=== PATIENT | male | born 1960 | race Native Hawaiian/Other Pacific Islander ===

== ENCOUNTER 2019-11-03 23:03 | Emergency (ER) | payer OTHER ==
[~2019-11-03] VITALS: Ht 195.6 cm; Wt 111.1 kg
[2019-11-03 23:50] LABS: PLATELET COUNT 354 K/uL (142-355)
[2019-11-04 01:14] VITALS: BP 134/85; TEMP 98.6
[2019-11-04] MEDS ORDERED: ASPIR-LOW81 MG PO (06:24)
[2019-11-04] MEDS ORDERED: LIPITOR40 MG PO (06:26)
[2019-11-04] MEDS ORDERED: BRILINTA90 MG PO (06:28)
[2019-11-04] MEDS ORDERED: BUSPIRONE5 MG PO (06:29)
[2019-11-04] MEDS ORDERED: DOCU100C10 PO (06:30)
[2019-11-04] MEDS ORDERED: ACID CONTROL20 MG PO (06:31)
[2019-11-04] MEDS ORDERED: LEVEMIR FL100 UNIT/M SC (06:33)
[2019-11-04] MEDS ORDERED: ROWEEPRA500 MG PO (06:34)
[2019-11-04] MEDS ORDERED: LOSA50TA PO (06:36)
[2019-11-04] MEDS ORDERED: LYRICA100 MG PO (06:37)
[2019-11-04] MEDS ORDERED: MELATONIN5 M2 PO (06:40)
[2019-11-04] MEDS ORDERED: METO-837 PO (06:41)
[2019-11-04] MEDS ORDERED: MIRALAX3350 N1 PO (06:43)
[2019-11-04] MEDS ORDERED: MIRTAZAPINE7.5 MG PO (06:47)
[2019-11-04] MEDS ORDERED: OZEMPIC2 MG/1.5 M SC (06:51)
[2019-11-04] MEDS ORDERED: SENNA PLUS 50-81 CAP PO (06:52)
[2019-11-04] MEDS ORDERED: SERT100T PO (06:55)
[2019-11-04] MEDS ORDERED: THERA PO (07:01)
[2019-11-04] MEDS ORDERED: TRICOR145 M1 PO (07:04)
[2019-11-04] MEDS ORDERED: XTAMPZA ER18 MG PO (07:07)
[2019-11-04] MEDS ORDERED: NOVOLOG FL100 UNIT/M SC (07:21)
== END 2019-11-04 01:14 | disposition still patient (30) ==
LOC: ED 23:03
PROVIDERS: Emergency Medicine Emergency Medical Services
DX: R45.851 Suicidal ideations (principal); F32.89 Other specified depressive episodes; Z11.59 Encounter for screening for other viral diseases; Z04.6 Encounter for general psychiatric examination, requested by authority
CPT/HCPCS: 36415; 80053; 81000; 85027; 87635; 93005; 99283; U0003